=== PATIENT | female | born 1990 | race Caucasian/White ===

== ENCOUNTER 2020-11-18 05:46 | Emergency (ER) | payer OTHER ==
[~2020-11-18] VITALS: Ht 152.4 cm; Wt 72.6 kg
[2020-11-18 05:48] VITALS: BP 156/92
--- NOTE | 2020-11-18 05:48 | NUR ---
PT MINDY RYAN. TAKEN TO CHAIR E
--- NOTE | 2020-11-18 06:55 | NUR ---
EKG PERFORMED IN TRIAGE ROOM. EKG READS ATRIAL PACED RHYTHM @ 72
[2020-11-18 07:30] LABS: BASOPHILS # (AUTO) 0.2 K/uL (0.00-0.22); BASOPHILS % (AUTO) 1.1 % (0.0-2.0); EOSINOPHILS # (AUTO) 0.5 K/uL (0-0.4); EOSINOPHILS % (AUTO) 3.6 % (0.0-4.0); HEMATOCRIT 39.6 % (36-48); HEMOGLOBIN 13.1 g/dL (12.0-16.0); LYMPHOCYTES # (AUTO) 4.2 K/uL (2.5-16.5); LYMPHOCYTES % (AUTO) 27.7 % (20.5-51.1); MEAN CORPUSCULAR HEMOGLOBIN 26 pg (27-31); MEAN CORPUSCULAR HGB CONC 33 g/dL (33-37); MEAN CORPUSCULAR VOLUME 77.7 fL (80-94); MONOCYTES # (AUTO) 1.1 K/uL (0.8-1.0); MONOCYTES % (AUTO) 7.6 % (1.7-9.3); PLATELET COUNT (AUTO) 459 K/uL (140-450); RED CELL DISTRIBUTION WIDTH 14.8 % (11.6-13.7)
[2020-11-18 07:48] LABS: ALBUMIN 3.6 g/dL (3.4-5.0); CARBON DIOXIDE 27.1 mmol/L (21-32); CREATININE 0.7 mg/dL (0.6-1.3); POTASSIUM 4.1 mmol/L (3.5-5.1); PROTHROMBIN TIME 9.3 secs (10.8-13.4); TOTAL BILIRUBIN 0.3 mg/dL (0.0-1.0)
--- NOTE | 2020-11-18 11:00 | NUR ---
30-year-old female c/o palpitations. Pt has a pacemaker in place. Pt denies chest pain. Pt denies SOB.
[2020-11-18 11:22] VITALS: BP 128/86
== END 2020-11-18 11:22 | disposition home or self-care (01) ==
LOC: MED 05:46
DX: R00.2 Palpitations (principal); Z95.0 Presence of cardiac pacemaker
CPT/HCPCS: 36415; 71045; 80053; 83880; 84484; 85025; 85610; 85730; 93005; 99285

== ENCOUNTER 2021-05-09 04:09 | Emergency (ER) | payer BC, OTHER ==
[~2021-05-09] VITALS: Ht 152.4 cm; Wt 68.9 kg
[2021-05-09 04:15] VITALS: BP 123/59
--- NOTE | 2021-05-09 04:15 | NUR ---
TO BED AMBULATORY
--- NOTE | 2021-05-09 04:25 | NUR ---
PT. IS A 31 Y/O FEMALE THAT CAME INTO ED WITH C/O OF LEFT ABDOMINAL PAIN THAT RADIATES TO FLANK PAIN. PT. DESCRIBES HER PAIN "FEELING LIKE A KNIFE STABBING AND PRESSURE." SHE RATES HER PAIN AT A 5/10 ON THE PAIN SCALE. PT. ALSO STATES THAT SHE WOKE UP IN COLD SWEATS AROUND 3 AM WHEN THE PAIN STARTED. UPON ASSESSMENT, PT. STATES THAT SHE HAD PAIN 2 WEEKS AGO FROM UNDER HER STERNUM AND HAD HEARTBURN FROM ALL FOODS SHE ATE. DENIES N/V/D; SKIN IS PINK/WARM/DRY; AAOX4 WITH EVEN AND STEADY GAIT; HR EVEN AND REGULAR; PT DENIES ANY FEVER, CP, SOB, OR COUGH AT THIS TIME;VSS; PATIENT POSITIONED FOR COMFORT; HOB ELEVATED; BEDRAILS UP X1; BED DOWN. ER MADE AWARE OF PT STATUS. PMH: PACEMAKER (2014) AND AMPUTATION DIGITS AND TOES (SINCE 3 YRS. OLD) ALLERGIES: PENICILLINS
[2021-05-09] MEDS ORDERED: DICYCLOMINE HCL LIQUID 20 MG, ALUMINUM HYD/MAG/SIMETHICONE 30 ML, LIDOCAINE VISCOUS 2% ... PO ONE ×3 (04:45)
[2021-05-09] MEDS ORDERED: ONDANSETRON 4 MG/2 ML VIAL IVP ONE (04:45)
[2021-05-09] MEDS ORDERED: MORPHINE SULFATE 4 MG/ML SYR IVP ONE ×2 (04:45→05:40)
--- NOTE | 2021-05-09 04:47 | NUR ---
PT. AMBULATED WITH STEADY GAIT TO BATHROOM.
[2021-05-09] MEDS ORDERED: DICYCLOMINE HCL LIQUID 10 MG/5 ML UDC ONE ×2 (04:58→05:00)
[2021-05-09] MEDS ORDERED: ALUMINUM HYD/MAG/SIMETHICONE 30 ML UDC ONE ×3 (04:58→05:01)
[2021-05-09] MEDS ORDERED: LIDOCAINE VISCOUS 2% 20 ML UDC ONE ×2 (04:58→05:00)
--- NOTE | 2021-05-09 05:14 | NUR ---
PT RETURN FROM CT
[2021-05-09 05:25] LABS: BASOPHILS # (AUTO) 0.1 K/uL (0.00-0.22); EOSINOPHILS # (AUTO) 0.6 K/uL (0-0.4); EOSINOPHILS % (AUTO) 3.7 % (0.0-4.0); HEMATOCRIT 38.7 % (36-48); HEMOGLOBIN 12.2 g/dL (12.0-16.0); LYMPHOCYTES # (AUTO) 5.1 K/uL (2.5-16.5); LYMPHOCYTES % (AUTO) 33.4 % (20.5-51.1); MEAN CORPUSCULAR HEMOGLOBIN 25 pg (27-31); MEAN CORPUSCULAR HGB CONC 32 g/dL (33-37); MEAN CORPUSCULAR VOLUME 77.7 fL (80-94); MONOCYTES # (AUTO) 1.2 K/uL (0.8-1.0); MONOCYTES % (AUTO) 7.8 % (1.7-9.3); NEUTROPHILS # (AUTO) 8.2 K/uL (1.8-7.7); NEUTROPHILS % (AUTO) 54.1 % (42.2-75.2); PLATELET COUNT (AUTO) 438 K/uL (140-450); RED BLOOD CELL COUNT(AUTO) 4.98 MIL/uL (4.20-5.40); WHITE BLOOD COUNT (AUTO) 15.1 K/uL (4.8-10.8)
[2021-05-09 06:08] LABS: ALBUMIN 3.1 g/dL (3.4-5.0); CARBON DIOXIDE 25.8 mmol/L (21-32); CREATININE 0.7 mg/dL (0.6-1.3); POTASSIUM 3.8 mmol/L (3.5-5.1); TOTAL BILIRUBIN 0.4 mg/dL (0.0-1.0)
--- NOTE | 2021-05-09 06:08 | NUR ---
PT. LAYING COMFORTABLY WITH PHONE IN HER HAND, WITH BOYFRIEND AT BEDSIDE. AWAITING DISPOSITION
--- NOTE | 2021-05-09 06:41 | NUR ---
Dr. Villa examining patient.
[2021-05-09] MEDS ORDERED: MAG-27 PO (06:55)
[2021-05-09] MEDS ORDERED: ACET-8386 PO (06:55)
[2021-05-09 07:09] VITALS: BP 140/71
--- NOTE | 2021-05-09 07:09 | NUR ---
Patient discharged with v/s stable. Written and verbal after care instructions given and explained. Patient alert, oriented and verbalized understanding of instructions. Ambulatory with steady gait. All questions addressed prior to discharge. ID band removed. Patient advised to follow up with PMD. Rx of HYDROCODONE/ACETAMINOPHEN, [place] MAXIMUM STRENGTH LIQ given. Patient educated on indication of medication including possible reaction and side effects. Opportunity to ask questions provided and answered.
== END 2021-05-09 07:09 | disposition home or self-care (01) ==
LOC: MED 04:09
DX: R10.9 Unspecified abdominal pain (principal); R12 Heartburn; I51.9 Heart disease, unspecified; Z88.0 Allergy status to penicillin
CPT/HCPCS: 36415; 74176; 80053; 81002; 81025; 83690; 85025; 96374; 96375; 99284; J2270; J2405

== ENCOUNTER 2021-05-20 10:40 | Emergency (ER) | payer BC ==
[~2021-05-20] VITALS: Ht 152.4 cm; Wt 71.2 kg
[2021-05-20 10:40] VITALS: BP 140/85
[~2021-05-20 10:40] MED LIST: ACET-8386 PO; MAG-27 PO
--- NOTE | 2021-05-20 10:40 | NUR ---
Patient BIBA ALS, transferred to bed 1. RN evaluating the patient at bedside.
--- NOTE | 2021-05-20 10:55 | NUR ---
31 y/o F MINDY from home with c/c chest discomfort. Patient A&Ox4, ambulatory, and reports heart palpitations; "feels like funny, not normal beats" occuring. Patient also states associated dizziness, headache, and weakness. 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 Patient also states diarrhea 1-2x/day due to recent prescription of Omperazole for GERD/abdominal pain. Patient placed onto monitoring specialist HR @ 87. EMT at bedside for EKG at this time. 20G Right AC established by EMS prior to arrival. Pt placed into a gown. Bed locked in lowest position, side rails x 1, call light in reach. PMH: GERD Medications: Omperazole ALlergies: PCN Sx: Pacemaker 2014; finger and toe amputations Addendum: 05/20/21 at 1106 by [facility] Patient denies SOB, N/V, fever/chills, cough, cold-like symptoms, swelling.
--- NOTE | 2021-05-20 10:58 | NUR ---
EMT at bedside for EKG.
--- NOTE | 2021-05-20 11:00 | NUR ---
Dr. Adams is evaluating patient at bedside.
--- NOTE | 2021-05-20 12:05 | NUR ---
Lab at bedside.
[2021-05-20 12:29] LABS: BASOPHILS # (AUTO) 0.1 K/uL (0.00-0.22); BASOPHILS % (AUTO) 0.7 % (0.0-2.0); EOSINOPHILS # (AUTO) 0.1 K/uL (0-0.4); EOSINOPHILS % (AUTO) 0.8 % (0.0-4.0); HEMATOCRIT 40.1 % (36-48); HEMOGLOBIN 13.1 g/dL (12.0-16.0); LYMPHOCYTES # (AUTO) 3.4 K/uL (2.5-16.5); LYMPHOCYTES % (AUTO) 26.9 % (20.5-51.1); MEAN CORPUSCULAR HEMOGLOBIN 25 pg (27-31); MEAN CORPUSCULAR HGB CONC 33 g/dL (33-37); MEAN CORPUSCULAR VOLUME 76.4 fL (80-94); MONOCYTES % (AUTO) 7.6 % (1.7-9.3); NEUTROPHILS # (AUTO) 8.1 K/uL (1.8-7.7); PLATELET COUNT (AUTO) 368 K/uL (140-450); RED BLOOD CELL COUNT(AUTO) 5.25 MIL/uL (4.20-5.40); RED CELL DISTRIBUTION WIDTH 14.6 % (11.6-13.7); WHITE BLOOD COUNT (AUTO) 12.7 K/uL (4.8-10.8)
[2021-05-20 12:56] LABS: ALBUMIN 3.5 g/dL (3.4-5.0); ANION GAP 15.1 (8-16); CARBON DIOXIDE 25.1 mmol/L (21-32); CREATININE 0.7 mg/dL (0.6-1.3); POTASSIUM 4.2 mmol/L (3.5-5.1); TOTAL BILIRUBIN 0.4 mg/dL (0.0-1.0)
--- NOTE | 2021-05-20 13:30 | NUR ---
Patient resting in position of comfort with family at bedside. health information managers remains in place. VSS. Patient states 3/10 abdominal pain similar to GERD symptoms; denies any request for pain management. Bed locked in lowest position, side rails x 1, call light in reach.
[2021-05-20 13:54] VITALS: BP 121/78
--- NOTE | 2021-05-20 13:54 | NUR ---
Patient discharged with v/s stable. Written and verbal after care instructions given and explained. Patient verbalized understanding. Ambulatory with steady gait. All questions addressed prior to discharge. Advised to follow up with PMD.
== END 2021-05-20 13:55 | disposition home or self-care (01) ==
LOC: MED 10:40
DX: R00.2 Palpitations (principal); R51.9 Headache, unspecified; Z95.0 Presence of cardiac pacemaker; Z88.0 Allergy status to penicillin; Z79.899 Other long term (current) drug therapy; Z89.029 Acquired absence of unspecified finger(s)
CPT/HCPCS: 36415; 71045; 80053; 83880; 84443; 84484; 85025; 93005; 99285